=== PATIENT | female | born 2000 | race Caucasian/White ===

== ENCOUNTER 2021-06-08 15:07 | Emergency (ER) | payer OTHER ==
[~2021-06-08] VITALS: Ht 154.9 cm; Wt 72.6 kg
[2021-06-08] MEDS ORDERED: IRON325 MG PO (18:40)
== END 2021-06-08 18:45 | disposition home or self-care (01) ==
LOC: ER 15:07
DX: S70.12XA Contusion of left thigh, initial encounter (principal); S70.11XA Contusion of right thigh, initial encounter; M79.652 Pain in left thigh; M79.651 Pain in right thigh; W22.8XXA Striking against or struck by other objects, initial encounter; D50.8 Other iron deficiency anemias; Y93.89 Activity, other specified; Y92.89 Other specified places as the place of occurrence of the external cause; Y99.8 Other external cause status